=== PATIENT | female | born 1955 | race Caucasian/White ===

== ENCOUNTER 2016-11-24 19:03 | Observation (INO) | payer BC ==
--- NOTE | ~2016-11-24 | HP ---
History And Physical [id number] [place]. [address] NAME: NADIA HAYES : 51 STATUS : ADM Aníbal PAT#: [id number] AGE: 60 ADM/REG DATE : 11/24/16 MR#: [id number] REPORT SERV DATE: 11/25/16 DICTATED BY: PERTONA COVINGTON DATE: 11/25/16 REPORT STATUS : Draft TRANSCRIBED BY: MODCleve DATE: 11/25/16 DATE OF ADMISSION: 11/24/2016 PRIMARY SONG LYRICIST: Dr. Juan C Adan. PRIMARY PRODUCT DEVELOPMENT SPECIALIST: Dr. Lizy Aguilar. CHIEF COMPLAINT: Chest pain. HISTORY OF PRESENT ILLNESS: This is a very pleasant 60-year-old female with history of nonischemic cardiomyopathy, mitral valve and tricuspid valve repair, and sarcoidosis, who developed chest pain after eating lunch at work yesterday. The chest pain occurred at rest and was described as "like a bra too tight" under both sides of her breast with radiation to her jaw and ears. The tightness lasted several minutes and was intermittent for an hour or so. She took Tylenol, aspirin, and Pepcid, and the pain got better, but then returned. The night prior, she also states similar symptoms while watching TV, than lasting only a few minutes and resolving spontaneously. She came to the Emergency Department around 4 p.m. yesterday for further evaluation, and was admitted to our Chest Pain Observation Unit. The patient is followed by Dr. Lizy Aguilar in outpatient setting with a fairly recent diagnosis of sarcoid involving the lung and restrictive lung disease. She is treated with prednisone. She also has a history of obstructive sleep apnea and is compliant with CPAP therapy. She has chronic dyspnea on exertion, and this has not been significantly worse over the last several weeks, but she does state "swollen ankles" over the last one and a half weeks. She does not regularly check her weight, but has not noticed any particular fluctuation in her weight. Denies PND or orthopnea. She does state a long-distance drive over the weekend, 6 hours, one way. Denies calf tenderness, unilateral swelling, or redness. History of TIA in 2012. No history DVT or PE. Denies recent fever, cough, or chills. PAST MEDICAL HISTORY: 1. Nonischemic cardiomyopathy. Thought to be result from Adriamycin received for breast cancer treatment. Cardiac catheterization in 2004 showing no significant coronary artery disease. EF of 35% by echocardiogram in 2014. 2. Status post ICD for preventive therapy in 2012, followed by Dr. Espinosa. 3. Hypertension. 4. Mixed hyperlipidemia. 5. Past breast cancer status post chemo and radiation as well as left lumpectomy, some left lymphedema resulting. 6. Mitral valve and tricuspid valve repair in 2005. 7. Obstructive sleep apnea compliant with CPAP therapy. 8. TIA in 2012. 9. Anxiety and depression. 10.Hypothyroidism. 11.Sarcoidosis with some restrictive lung disease followed by Dr. Lizy Aguilar. History And Physical [address] [address] NAME: NADIA HAYES : 51 STATUS : ADM Aníbal PAT#: [id number] AGE: 60 ADM/REG DATE : 11/24/16 MR#: [id number] REPORT SERV DATE: 11/25/16 DICTATED BY: PETRONA COVINGTON DATE: 11/25/16 REPORT STATUS : Draft TRANSCRIBED BY: NIXON DATE: 11/25/16 PAST SURGICAL HISTORY: Cholecystectomy in 2010 and hysterectomy in 2003. HOME MEDICATIONS: Tylenol 500 daily p.r.n., aspirin 81 mg enteric coated every bedtime, Coreg 25 b.i.d., vitamin D 2000 units q.h.s., Celexa 20 q.h.s., Pepcid 20 q.h.s., Lasix 80 mg daily, Synthroid 50 mcg daily, Cozaar 25 q.h.s., multivitamin daily, prednisone 30 daily, Zocor 10 q.h.s., and Aldactone 25 daily. ALLERGIES: PHENERGAN CAUSES VOMITING. SOCIAL HISTORY: The patient is a and Lives alone. Her one daughter is at bedside. She works for [employer], states a fairly active lifestyle. Never smoked. Denies alcohol use. FAMILY HISTORY: Father of an DE at age 70. Brother of an DE at age 54, and another brother of an DE at age 70. REVIEW OF SYSTEMS: Negative except as indicated above. PHYSICAL EXAMINATION: VITAL SIGNS: Blood pressure 106/67, heart rate 70, temperature 98.4, pulse oximetry 97% on room air, and BMI of 36.5. GENERAL: Well developed, well nourished, in no acute distress HEENT: Anicteric. Normal EOM. Head normocephalic. PERRLA, no xanthelasma. NECK: Supple. No JVD. Carotids normal without bruits. LUNGS: Clear to auscultation bilaterally anterior and posterior. Respirations even and unlabored. CARDIOVASCULAR: S1, S2, regular rate and rhythm with PACs noted, 2/6 systolic ejection murmur auscultated. No chest wall tenderness. ABDOMEN: Normal bowel sounds. Soft and nontender to palpation. No masses or organomegaly. EXTREMITIES: Trace to 1+ edema to bilateral lower extremities. No calf tenderness. No cyanosis or clubbing. Normal distal pulses. SKIN: Warm and dry. Normal turgor. No pallor or cyanosis. MUSCULOSKELETAL: Moving all extremities x4. Normal muscle strength. NEURO/PSYCH: Alert and oriented with appropriate affect. LABORATORY DATA: White blood count 8.8, hemoglobin 13.3, and hematocrit 40.1. Sodium 141, potassium 3.8, BUN 18, and creatinine 1.1. Troponin less than 0.02 and 0.02. BNP 327. Chest x-ray shows stable cardiomegaly and prior tricuspid and mitral valve replacement. No acute cardiopulmonary processes. EKG, interpreted by myself indicates sinus rhythm with PACs and nonspecific ST and T-wave changes. QTc ranges from 519 to 535 milliseconds. Historic EKG from February of 2016 shows QTc of 489. Review of telemetry shows frequent PACs. ASSESSMENT/PLAN: 1. Chest pain in this 60-year-old female with cardiovascular risk factors of hypertension, hyperlipidemia, and family history. She does not have a history of coronary artery History And Physical [address] [address] NAME: NADIA HAYES : 51 STATUS : ADM Aníbal PAT#: [id number] AGE: 60 ADM/REG DATE : 11/24/16 MR#: [id number] REPORT SERV DATE: 11/25/16 DICTATED BY: PETRONA COVINGTON DATE: 11/25/16 REPORT STATUS : Draft TRANSCRIBED BY: MODCleve DATE: 11/25/16 disease by cardiac catheterization in 2004. Recommend proceeding with a nuclear stress test today. 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 2. Nonischemic cardiomyopathy. Chronic systolic congestive heart failure. She appears stable on exam and chest x-ray. Continue current medication regimen, beta-brant, diuretics, and ARB as well as Aldactone. 3. Sarcoidosis. The patient is currently under the care of Dr. Aguilar and on prednisone. Chronic dyspnea on exertion. 4. Hypertension. Blood pressure controlled. Continue home medications. 5. Hyperlipidemia. The patient is on low intensity statin. We will continue. DBT/MODL Petrona Covington NP / [id number] CC: Wendy Benton, MSN, HAND SCREEN PRINTER- Neli Valadez M.D. Juan C Adan M.D. Lizy Aguilar M.D.
[2016-11-24 16:48] LABS: BASOPHILS 0.1 %; BASOPHILS ABSOLUTE 0.01 10/3/uL (0.0-0.16); EOSINOPHILS 0.6 %; EOSINOPHILS ABSOLUTE 0.05 10/3/uL (0.0-0.53); ER CBC TAT 0 Hrs 03 Mins; HEMATOCRIT 40.1 % (36.0-48.0); HEMOGLOBIN 13.3 g/dL (12.0-16.0); IMMATURE GRANULOCYTES 0.3 %; IMMATURE GRANULOCYTES ABSOLUTE 0.03 10/3/uL (0.0-0.11); LYMPHOCYTES 26.9 %; LYMPHOCYTES ABSOLUTE 2.37 10/3/uL (0.67-4.30); MANUAL DIFF NO %; MEAN CORPUS HGB CONC 33.2 g/dL (32.0-36.0); MEAN CORPUSCULAR HEMOGLOB 31.4 pg (26.0-34.0); MEAN CORPUSCULAR VOLUME 94.8 fL (80-100); MEAN PLATELET VOLUME 8.5 fL (9.2-13.0); MONOCYTES 10.2 %; NEUTROPHILS 61.9 %; NEUTROPHILS ABSOLUTE 5.44 10/3/uL (2.02-8.40); PLATELET COUNT 177 10/3/uL (150-400); RBC DISTRIBUTION WIDTH 14.9 % (12.0-16.0); RED CELL COUNT 4.23 10/6/uL (4.0-5.6); WHITE BLOOD CELLS 8.8 10/3/uL (4.5-10.5)
[2016-11-24 17:03] LABS: CALCIUM, SERUM 9.2 MG/DL (8.5-10.4); CHEST PAIN PROFILE TAT 0 Hrs 18 Mins; CHLORIDE, SERUM 101 MMOL/L (96-112); CO2 (CARBON DIOXIDE) 30 MMOL/L (24-34); CREATININE 1.41 MG/DL (0.55-1.02); GFR AFRICAN AMERICAN 46 ML/MIN (>=60); GFR NON AFRICAN AMERICAN 40 ML/MIN (>=60); POTASSIUM, SERUM 3.7 MMOL/L (3.5-5.3); SODIUM, SERUM 138 MMOL/L (135-148); TROPONIN I <0.02 NG/ML (<0.05)
[2016-11-24 17:04] LABS: BUN (BLOOD UREA NITROGEN) 18 MG/DL (6-23); GLUCOSE, SERUM 110 MG/DL (60-99)
[2016-11-24 17:33] LABS: PARTIAL THROMBO TIME 22.9 SEC (22.5-37.2)
[~2016-11-24 19:03] MED LIST: ALTA2.5 PO; ALTACE10 MG PO; ASAB PO; CELEXA10 PO; CENTRUM TAB1 TAB PO; COREG25 PO; L80 PO; LEXAPRO10 PO; MULTIPLE VIT PO; SPIRO25 PO; VITAMIN D31000 UNIT PO; ZANTAC 150 PO; ZOCOR10 PO
[2016-11-24] MEDS ORDERED: PEP20 PO (19:16)
[2016-11-24] MEDS ORDERED: VITAMIN D2000 UNIT PO (19:16)
[2016-11-24] MEDS ORDERED: CELEXA20 PO (19:17)
[2016-11-24] MEDS ORDERED: HALF81 PO (19:18)
[2016-11-24] MEDS ORDERED: L80 PO (19:18)
[2016-11-24] MEDS ORDERED: COZ25 PO (19:18)
[2016-11-24] MEDS ORDERED: ASABAYER PO (19:18)
[2016-11-24] MEDS ORDERED: SYN.05 PO (19:19)
[2016-11-24] MEDS ORDERED: SPIRO25 PO (19:19)
[2016-11-24] MEDS ORDERED: ZOCOR10 PO (19:19)
[2016-11-24] MEDS ORDERED: CENTRUM PO (19:19)
[2016-11-24] MEDS ORDERED: P10 PO (19:19)
[2016-11-24] MEDS ORDERED: ACET500CAP PO (19:19)
[2016-11-24] MEDS ORDERED: COREG25 PO (19:20)
[2016-11-25 07:10] LABS: BUN (BLOOD UREA NITROGEN) 18 MG/DL (6-23); CALCIUM, SERUM 9.3 MG/DL (8.5-10.4); CHLORIDE, SERUM 104 MMOL/L (96-112); CO2 (CARBON DIOXIDE) 30 MMOL/L (24-34); CREATININE 1.15 MG/DL (0.55-1.02); GFR AFRICAN AMERICAN 59 ML/MIN (>=60); GFR NON AFRICAN AMERICAN 51 ML/MIN (>=60); GLUCOSE, SERUM 88 MG/DL (60-99); POTASSIUM, SERUM 3.8 MMOL/L (3.5-5.3); SODIUM, SERUM 141 MMOL/L (135-148)
== END 2016-11-25 15:07 | disposition home or self-care (01) ==
LOC: ER 19:03 → CDU1 19:11 → CDU2 20:10
PROVIDERS: Clinical Nurse Specialist; Emergency Medicine
DX: R07.9 Chest pain, unspecified (principal); I42.9 Cardiomyopathy, unspecified; D86.9 Sarcoidosis, unspecified; I10 Essential (primary) hypertension; E78.5 Hyperlipidemia, unspecified; G47.33 Obstructive sleep apnea (adult) (pediatric); R06.00 Dyspnea, unspecified; E78.2 Mixed hyperlipidemia; Z99.81 Dependence on supplemental oxygen; Z86.73 Personal history of transient ischemic attack (TIA), and cerebral infarction without residual deficits; F41.9 Anxiety disorder, unspecified; F32.9 Major depressive disorder, single episode, unspecified; E03.9 Hypothyroidism, unspecified; Z90.49 Acquired absence of other specified parts of digestive tract; Z90.710 Acquired absence of both cervix and uterus; Z79.899 Other long term (current) drug therapy; Z88.8 Allergy status to other drugs, medicaments and biological substances
CPT/HCPCS: 71020; 78452; 80048; 83735; 83880; 84484; 85025; 85610; 85730; 93005; 93017; 99285; A9270-GY; A9502; G0378